=== PATIENT | female | born 1945 | race Asian ===

== ENCOUNTER 2017-04-27 11:12 | Outpatient (CLI) | payer MEDICARE, MEDICAID ==
[~2017-04-27 11:12] MED LIST: METO25TA6 PO
[2017-04-27 11:17] VITALS: BP 134/67
== END 2017-04-27 11:55 | disposition home or self-care (01) ==
LOC: ORTHO 11:12
PROVIDERS: ATTEND Nurse Practitioner Family
DX: S92.254D Nondisplaced fracture of navicular [scaphoid] of right foot, subsequent encounter for fracture with routine healing (principal); M77.31 Calcaneal spur, right foot; Z88.0 Allergy status to penicillin; W01.0XXD Fall on same level from slipping, tripping and stumbling without subsequent striking against object, subsequent encounter
CPT/HCPCS: 73610